=== PATIENT | female | born 1960 | race Caucasian/White ===

== ENCOUNTER 2017-06-21 16:02 | Observation (INO) ==
[2017-06-21] MEDS ORDERED: Naloxone 0.4 MG/ML INJ IVP PRN (19:10)
[2017-06-21] MEDS ORDERED: 0.9 % Sodium Chloride 1,000 ML IVC SCH (19:15)
--- NOTE | 2017-06-21 19:19 | Internal Med History&Physical ---
Date of Encounter: 06/21/17 Time of Encounter: 19:15 Assessment and Plan (1) Essential hypertension Current visit: Yes Status: Acute Restart home antihypertensive medications. (2) Hyperlipidemia Current visit: Yes Status: Acute Check lipid panel in the morning. Qualifiers: Hyperlipidemia type: unspecified Qualified Code(s): E78.5 - Hyperlipidemia , unspecified (3) Chest pain Current visit: No Status: Acute The pain has several typical and atypical features. It is located in the precordial area and worse with exertion, improves with nitroglycerin. Pain is reproducible on palpation of the anterior chest area. Currently the chest pain has resolved. Troponin is negative and EKG shows no ischemic features. We will monitor the patient on telemetry. Trend troponin. If she rules out for ACS will proceed with stress test in the morning. Check echocardiogram. Continue with nitroglycerin as needed for chest pain. Qualifiers: Chest pain type: precordial pain Qualified Code(s): R07.2 - Precordial pain Internal Medicine - H&P: HPI Chief complaint: Chest pain Admitted From: Emergency Dept Plans for Post Hospital Care: Home History of present illness: Ms. Travis is a 57 year old female with past medical history of hypertension and hyperlipidemia presented to an outside hospital for evaluation of chest pain. She reports her chest pain as located in the left side of the chest radiating to the back and left upper extremity associated with dizziness and nausea. The pain is worse with exertion. She present to all outside hospital where an EKG was nondiagnostic. Troponin was normal. The pain improved with administration of nitroglycerin. She was transferred to our hospital for further workup and care. A 10 point review of systems was positive for seasonal allergies, diarrhea and constipation alternating, skin rash Past medical history as above Past surgical history cholecystectomy spinal surgery and hysterectomy Social history: She denies tobacco alcohol and drug use. Family history: Negative for coronary artery disease in both parents. Patient' s father of lung cancer. Past Med Surg Social Fam HX - Past Medical History Medical history: arthritis, GERD, hyperlipidemia, hypertension, other Psychiatric history: depression - Past Surgical History Surgical History: cholecystectomy, hysterectomy, sinus surgery - Social History Smoking Status: Former smoker Packs per day: 2 Smokeless Tobacco Status: No Alcohol use: none Drug use: none - Family History Mother Living Status: Age at : 77 Cause of : cancer Hx Family Cardiac Disorders: No Hx Family Respiratory Disorders: No Hx Family Cancer: Yes Hx Family GI Disorders: Yes (GERD) Hx Family Genitourinary Disorders: No Hx Family Endocrine Disorder: No Hx Family Musculoskeletal Disorders: No Hx Family Neuromuscular Disorders: No Hx Family Neurologic Disorders: No Hx Family HEENT Disorders: No Hx Family Autoimmune Disorders: No Hx Family Reproductive Disorders: No Hx Family Psychosocial Disorders: No Hx Family Medical Disorders: No Father Living Status: Age at : 52 Cause of : lung cancer Hx Family Cardiac Disorders: No Hx Family Respiratory Disorders: No Hx Family Cancer: Yes Hx Family GI Disorders: No Hx Family Genitourinary Disorders: No Hx Family Endocrine Disorder: No Hx Family Musculoskeletal Disorders: No Hx Family Neuromuscular Disorders: No Hx Family Neurologic Disorders: No Hx Family HEENT Disorders: No Hx Family Autoimmune Disorders: No Hx Family Reproductive Disorders: No Hx Family Psychosocial Disorders: No Hx Family Medical Disorders: No Sister Adopted: [place]: Stephania Age: 57 Family Member Ethnicity: Non- Living Status: Still Living Hx Family Cardiac Disorders: No Hx Family Respiratory Disorders: No Hx Family Cancer: No Hx Family GI Disorders: No Hx Family Genitourinary Disorders: No Hx Family Endocrine Disorder: Yes (Diabetes) Hx Family Musculoskeletal Disorders: No Hx Family Neuromuscular Disorders: No Hx Family Neurologic Disorders: No Hx Family HEENT Disorders: No Hx Family Autoimmune Disorders: No Hx Family Reproductive Disorders: No Hx Family Psychosocial Disorders: No Hx Family Medical Disorders: No Internal Medicine - H&P: Meds Aspirin [Lo-Dose Aspirin EC] 81 mg PO 06/21/17 [History] Calcium Citrate/Vitamin D2 [Calcium with Vit D Tablet] 06/21/17 [History] Cetirizine HCl [Zyrtec] 10 mg PO 06/21/17 [History] FLUoxetine HCl [PROzac] 20 mg PO DAILY 06/21/17 [History] Multi-Day Vitamins PO 06/21/17 [History] Naproxen Sodium [Aleve] 220 mg PO 06/21/17 [History] [place]-3 Fatty Acids [Fish Oil] 300 mg PO 06/21/17 [History] Prilosec Otc 20 mg PO DAILY 06/21/17 [History] 3 Allergy/AdvReac Type Severity Reaction Status Date / Time codeine Allergy Hives Verified 06/21/17 11:25 All Systems PM: A 10-system review of systems was performed and is negative for pertinent findings except as documented above in the HPI. - Eye Eye exam: Present: PERRL, conjuntiva pink, sclera anicteric Pupils: Present: PERRL - Respiratory Respiratory exam: Present: CTAB. Absent: accessory muscle use, rales, rhonchi, wheezes - Cardiovascular Cardiovascular exam: Present: RRR, +S1, +S2. Absent: diastolic murmur, gallop, rubs, systolic murmur - GI/Abdominal GI/Abdominal exam: Present: normal bowel sounds, soft, no peritoneal signs. Absent: distended, tenderness - Extremities Exam Extremities exam: Present: warm, radial pulses palpable and symmetrical. Absent : calf tenderness, cyanotic, pedal edema - Neurological Exam Neurological exam: Present: CN II-XII intact, oriented X3, no focal deficits. Absent: pronater drift, facial droop, speech deficit - Skin Skin exam: Present: dry, intact Internal Med - H&P Results - Labs Labs: Per review of [place] emergency department medical record: Troponin 0.00. Creatinine 0.8. Potassium 3.4. EKG and [place] revealed normal sinus rhythm, narrow QRS. Nonspecific ST and T wave changes.
[2017-06-21] MEDS: Acetaminophen 325 MG TABLET PO PRN (22:12)
[2017-06-22 02:13] LABS: Basophils % 0.7 %; Eosinophils # 0.2 K/mcL (0.0-0.6); Eosinophils % 2.9 %; Hematocrit 39.9 % (35.3-44.9); Hemoglobin 13.6 g/dL (11.5-15.4); Immature Granulocytes % 0.4 % (0-4); Lymphocytes # 2.2 K/mcL (0.6-4.6); Lymphocytes % 39.5 %; Mean Corpuscular HGB Conc 34.1 g/dL (31.6-35.5); Mean Corpuscular Hemoglobin 30.5 pg (28.0-33.3); Mean Corpuscular Volume 89.5 fL (83.0-100.0); Mean Platelet Volume 9.8 fL (9.4-12.4); Monocytes # 0.6 K/mcL (0.0-1.3); Neutrophils # 2.5 K/mcL (1.6-8.9); Platelet Count 218 K/mcL (140-400); Red Blood Count 4.46 M/mcL (3.82-4.97); Red Cell Distribution Width 12.4 % (11.5-14.5); Segmented Neutrophils % 45.5 %
[2017-06-22 02:16] LABS: BUN/Creatinine Ratio 20 (6-26); Blood Urea Nitrogen 17 mg/dL (7-20); Carbon Dioxide 23 mEq/L (19-29); Chloride 109 mEq/L (98-109); Chol/HDL Ratio 5.7 (0-4.9); Cholesterol 183 mg/dL (< 200); Glucose 108 mg/dL (70-99); HDL Cholesterol 32 mg/dL (40-59); LDL Cholesterol,Calculated 119 mg/dL (0-99); Magnesium 2.1 mg/dL (1.6-2.6); Osmolality,Calculated 294 (280-300); Potassium 4.2 mEq/L (3.5-4.5); Sodium 141 mEq/L (136-145); Triglycerides 161 mg/dL (< 150); eGFR For African Americans > 60 (> 60); eGFR For Non-African Americans > 60 (> 60)
[2017-06-22] MEDS: Acetaminophen 325 MG TABLET PO PRN (04:06)
[2017-06-22] MEDS ORDERED: Regadenoson 0.4 MG/5 ML SYRINGE IVP ONE (07:42)
--- NOTE | 2017-06-22 08:53 | Internal Med Progress Note ---
Date of Encounter: 06/22/17 Time of Encounter: 11:40 - Assessment and plan (1) Chest pain Current Visit: Yes Status: Acute Assessment and plan: Pmh of HTN and hyperlipidemia presenting with typical chest pain on the left side of chest and radiating down her left arm, relieved by nitroglycerin and worst with excretion. FM . Aspirin use . No prior Echo or stress test. Patient's EKG showed normal sinus rhythm. Troponin = 0.01, 0.00. Plans: - Aspirin 81 mg - Echo today - Nuclear stress test today - NS 75ml/hr Qualifiers: Qualified Code(s): I20.0 - Unstable angina (2) Essential hypertension Current Visit: Yes Status: Acute Assessment and plan: Elevated BP this morning of 175/92. Will restarting home medication of lisinopril after testing as kidney function is wnl. (3) Hyperlipidemia Current Visit: Yes Status: Acute Assessment and plan: Patient on [place] 3 Fatty Acid Qualifiers: Qualified Code(s): E78.5 - Hyperlipidemia, unspecified - Constitutional Vitals: Temp Pulse Resp BP Pulse Ox 97.6 F 53 16 175/92 97 06/22/17 06:50 06/22/17 06:50 06/22/17 06:50 06/22/17 06:50 06/22/17 06:50 Internal Medicine: Result - Labs CBC & Chem 7: 06/22/17 01:49 06/22/17 01:49 Labs: Short CBC 06/22/17 Range/Units 01:49 WBC 5.5 (4.3-11.1) K/mcL Hgb 13.6 D (11.5-15.4) g/dL Hct 39.9 (35.3-44.9) % Plt Count 218 (140-400) K/mcL Neutrophils # 2.5 (1.6-8.9) K/mcL BMP 06/22/17 01:49 Sodium 141 Potassium 4.2 Chloride 109 Carbon Dioxide 23 BUN 17 Creatinine 0.87 Glucose 108 H Calcium 9.0 Cardiac Enzymes 06/21/17 06/22/17 Range/Units 19:57 01:49 Troponin I 0.01 0.00 (0-0.03) ng/mL Consult Discharge Plan - Plan Referrals: Vicki Allen CNP [Primary Care Provider] - 07/04/17 1:30 pm
[2017-06-22] MEDS ORDERED: Aspirin Enteric Coated 81 MG Tablet PO SCH (09:00)
[2017-06-22] MEDS ORDERED: FLUoxetine 20 MG CAPSULE PO SCH (09:00)
--- NOTE | 2017-06-22 09:52 | Nuclear Medicine Stress Report ---
Regadenoson Nuclear Stress Name: Tash Travis Date of Study: 06/22/2017 Date: 1960 Ht: 66.0 in Medical Record#: [id number] Age: 57 Wt: 168.0 lb Gender: Female Order #: [id number] Location: [facility] Room: [facility] Supervising Provider: Chip Sanchez CNP Reading Physician: Howard Mckenzie DO, FACC, FASNC Stress Technologist: Jose A Underwood CRT Renewals Manager: Damion Martins Indications: Chest Pain Impression: Pharmacologic stress ECG is negative for ischemia at level of heart rate achieved. Gated EF = 77%. Perfusion imaging was negative for ischemia or infarct. Stress Test Summary: Stress Test Type: Pharmacologic Regadenoson 0.4mg/5ml given IV Baseline Information: Initial Heart Rate: 54 Blood Pressure: 152/90 Stress Information: Test Terminated Due to (primary): As per protocol Maximum Blood Pressure: 160/80 Maximum Heart Rate: 94 Percent Maximum Heart Rate Achieved: 57 Double Product: [id number] METS Reached: 1 Symptoms: No chest symptoms Nuclear Summary: SPECT myocardial perfusion imaging using Tc99m Sestamibi given intravenously was performed at rest and following cardiac stress testing. The resting images were obtained following initial dose of 11.8 mCi. Following stress an additional dose of 35.5 mCi was given at peak exercise or 30 seconds post regadenoson infusion. Medication Given: Time Medication Dose Units Route Findings: Stress Note * Resting ECG demonstrated normal sinus rhythm. * No baseline arrhythmias were noted. * Pharmacologic stress ECG is negative for ischemia at level of heart rate achieved. * No arrhythmias were noted during stress. * Patient had no chest pain during stress. * Normal hemodynamic responses to pharmacologic stress. Study Quality * Study quality is average. Gated EF % * Gated EF = 77%. Left Ventricle * The left ventricle is not dilated. LVEDV = 65 mL. NORMALS * Normal wall motion. * Normal Segmental Perfusion in rest. * Normal segmental perfusion in stress. TID * No evidence of transient ischemic dilatation. TID ratio = 1.07. Lung Uptake * There is no evidence of increase lung uptake. Updated by Howard Mckenzie DO, FACC, FASE, FASNC on 06/22/2017 9:45:16 AM electronically signed on 06/22/2017 9:46:13 AM with status of Final
[2017-06-22 14:40] VITALS: BP 140/80
--- NOTE | 2017-06-22 16:31 | Cardiology Consult Note ---
<Jasmeet Steen - Last Filed: 06/22/17 17:34> Date of Encounter: 06/22/17 Time of Encounter: 16:24 Assessment and Plan (1) Chest pain Status: Acute Chest pain with typical and atypical features. Cardiac risk factors include HTN, HLD, and previous tobacco use. Troponin negative, d-dimer negative. EKG shows NSR with no acute ST changes. Pharmacologic stress test found to be negative for ischemia. Echocardiogram LVEF 65%. Normal LV chamber size, wall thickness and function. Mild left ventricular diastolic dysfunction. Normal right ventricular structure and function. No evidence of pulmonary hypertension. No significant valvular dysfunction. Telemetry review shows SR, avg HR 64. HR in the 50's during daytime hours and 40 's during nocturnal hours. Recommend aggressive risk factor modification. Better blood pressure control. Continue asa, add statin. Increase lisinopril. No beta-dari d/t HR in the 50' s at times. Qualifiers: Ischemic chest pain type: unstable angina pectoris Qualified Code(s): I20.0 - Unstable angina (2) Essential hypertension Status: Chronic Increase lisinopril. Low sodium diet. (3) Hyperlipidemia Status: Chronic Qualifiers: Hyperlipidemia type: unspecified Qualified Code(s): E78.5 - Hyperlipidemia , unspecified Discussion w patient/family: The assessment and plan as outlined above was discussed with the patient and/or family members who expressed understanding and agreement. All questions were answered. Thank you for involving us in the care of your patient. Please call with any questions. History of Present Illness Consult date: 06/22/17 Requesting physician: Iraj Ashby Consult reason: Chest pain Chief complaint: Chest pain History of present illness: Ms. Travis is a 57 year old female with a history of HTN, HLD, and previous tobacco abuse who presented with chest pain. She was directed to go to the ER when she was found to have elevated blood pressure and HR in the 50's at her PCP office. She c/o left chest aching radiating to her back and numbness and tingling running down her arm starting two weeks ago. She associates it with excessive sweating, SOB, and palpitations. She also c/o dizziness with position change. Symptoms increase with activity and improve with rest. During her hospital stay her cardiac work-up was normal including stress test and echocardiogram. Troponin was negative. EKG showed NSR. She was noted to have elevated b/p up to 175/92. Past Med Surg Social Fam HX - Past Medical History Medical history: arthritis, GERD, hyperlipidemia, hypertension, other Psychiatric history: depression - Past Surgical History Surgical History: cholecystectomy, hysterectomy, sinus surgery - Social History Smoking Status: Former smoker Packs per day: 2 Smokeless Tobacco Status: No Alcohol use: none Drug use: none - Family History Mother Living Status: Age at : 77 Cause of : cancer Hx Family Cardiac Disorders: No Hx Family Respiratory Disorders: No Hx Family Cancer: Yes Hx Family GI Disorders: Yes (GERD) Hx Family Genitourinary Disorders: No Hx Family Endocrine Disorder: No Hx Family Musculoskeletal Disorders: No Hx Family Neuromuscular Disorders: No Hx Family Neurologic Disorders: No Hx Family HEENT Disorders: No Hx Family Autoimmune Disorders: No Hx Family Reproductive Disorders: No Hx Family Psychosocial Disorders: No Hx Family Medical Disorders: No Father Living Status: Age at : 52 Cause of : lung cancer Hx Family Cardiac Disorders: No Hx Family Respiratory Disorders: No Hx Family Cancer: Yes Hx Family GI Disorders: No Hx Family Genitourinary Disorders: No Hx Family Endocrine Disorder: No Hx Family Musculoskeletal Disorders: No Hx Family Neuromuscular Disorders: No Hx Family Neurologic Disorders: No Hx Family HEENT Disorders: No Hx Family Autoimmune Disorders: No Hx Family Reproductive Disorders: No Hx Family Psychosocial Disorders: No Hx Family Medical Disorders: No Sister Adopted: [place]: Stephania Age: 57 Family Member Ethnicity: Non- Living Status: Still Living Hx Family Cardiac Disorders: No Hx Family Respiratory Disorders: No Hx Family Cancer: No Hx Family GI Disorders: No Hx Family Genitourinary Disorders: No Hx Family Endocrine Disorder: Yes (Diabetes) Hx Family Musculoskeletal Disorders: No Hx Family Neuromuscular Disorders: No Hx Family Neurologic Disorders: No Hx Family HEENT Disorders: No Hx Family Autoimmune Disorders: No Hx Family Reproductive Disorders: No Hx Family Psychosocial Disorders: No Hx Family Medical Disorders: No Medications and Allergies Aspirin [Lo-Dose Aspirin EC] 81 mg PO DAILY 06/21/17 [History] Calcium Carbonate/Vitamin D3 [Calcium 500 + Vit D 200 Caplet] 1 each PO DAILY [History] Cetirizine HCl [Zyrtec] 10 mg PO DAILY 06/21/17 [History] FLUoxetine HCl [PROzac] 20 mg PO DAILY 06/21/17 [History] Lisinopril [Zestril] 10 mg PO DAILY 06/21/17 [History] Multivitamin [Multi-Day Vitamins] 1 each PO DAILY 06/21/17 [History] Naproxen Sodium [Aleve] 220 mg PO Q12H 06/21/17 [History] [place]-3 Fatty Acids [Fish Oil] 300 mg PO DAILY 06/21/17 [History] Omeprazole Magnesium [Prilosec Otc] 20 mg PO DAILY 06/21/17 [History] 3 Allergy/AdvReac Type Severity Reaction Status Date / Time codeine Allergy Hives Verified 06/21/17 11:25 All Systems Review: A 10-system review of systems was performed and is negative for pertinent findings except as documented above in the HPI. Physical Examination Vital Signs, Last 4 Hours Temp Pulse Resp BP Pulse Ox 06/22/17 14:38 98.0 F 67 16 140/80 99 General: Conversant, No Apparent Distress HEENT: Atraumatic, Normocephaly, Mucus Membranes Moist Neck: No JVD, Normal carotid pulses Cardiac: Reg Rate and Rhythm, Normal S1 and S2, No Murmur Lungs: Normal Breath Sounds, No Wheeze, Rales, Rhonchi Neuro: Alert and responsive, No focal deficits noted Abdomen: Soft, Non-Tender Skin: No rashes noted on visualized skin Musculoskeletal: Other (Left chest wall tender to palpation.) Extremities: No Clubbing, No Cyanosis, No Edema, Normal Pulses Results 06/22/17 01:49 06/22/17 01:49 Lab Results 06/21/17 06/22/17 06/22/17 19:57 01:49 01:49 WBC 5.5 Hgb 13.6 D Hct 39.9 Plt Count 218 Sodium Potassium Chloride Carbon Dioxide BUN Creatinine Glucose Calcium Magnesium Troponin I 0.01 0.00 B-Natriuretic Peptide 06/22/17 06/22/17 01:49 01:49 WBC Hgb Hct Plt Count Sodium 141 Potassium 4.2 Chloride 109 Carbon Dioxide 23 BUN 17 Creatinine 0.87 Glucose 108 H Calcium 9.0 Magnesium 2.1 Troponin I B-Natriuretic Peptide < 10 Echocardiogram 06/22/17 19:14 Impressions: LVEF 65%. Normal LV chamber size, wall thickness and function. Mild left ventricular diastolic dysfunction. Normal right ventricular structure and function. No evidence of pulmonary hypertension. No significant valvular dysfunction. Left Ventricular Wall Motion: Rest Echo Findings All wall segments showed normal motion. - Imaging and Cardiology Stress Test: report reviewed Echo: report reviewed - EKG Interpretation EKG results cardiology: personally reviewed Consult Discharge Plan - Plan Instructions: Chest Pain (DC) Additional Instructions: Follow-up with your primary care physician and cardiology in 1 to 2 weeks. Recheck in the ED if symptoms worsen or new symptoms arise. Talk to primary care physician about getting an gastroenterology follow-up if no other cause of chest pain. Referrals: [facility] [Provider Group] Vicki Allen CNP [Primary Care Provider] - 07/04/17 1:30 pm <Cailin Pham - Last Filed: 06/23/17 14:19> Date of Encounter: 06/23/17 Assessment and Plan Discussion w patient/family: The assessment and plan as outlined above was discussed with the patient and/or family members who expressed understanding and agreement. All questions were answered. Thank you for involving us in the care of your patient. Please call with any questions. History of Present Illness History of present illness: Ms. Travis is a 57 year old female All Systems Review: A 10-system review of systems was performed and is negative for pertinent findings except as documented above in the HPI. Results 06/22/17 01:49 06/22/17 01:49 - Attending Attestation Patient was discharged prior to my evaluation.
--- NOTE | 2017-06-22 17:05 | Discharge Summary ---
<Padmini Reyes - Last Filed: 06/22/17 17:00> Date of Encounter: 06/22/17 Time of Encounter: 11:45 - Discharge Diagnosis (1) Chest pain Priority: Primary Status: Acute Qualifiers: Ischemic chest pain type: unstable angina pectoris Qualified Code(s): I20.0 - Unstable angina (2) Essential hypertension Priority: Secondary Status: Chronic (3) Hyperlipidemia Priority: Secondary Status: Chronic Qualifiers: Hyperlipidemia type: unspecified Qualified Code(s): E78.5 - Hyperlipidemia , unspecified - Discharge Medications Home Medications: Aspirin [Lo-Dose Aspirin EC] 81 mg PO DAILY 06/21/17 [History] Calcium Carbonate/Vitamin D3 [Calcium 500 + Vit D 200 Caplet] 1 each PO DAILY [History] Cetirizine HCl [Zyrtec] 10 mg PO DAILY 06/21/17 [History] FLUoxetine HCl [PROzac] 20 mg PO DAILY 06/21/17 [History] Lisinopril [Zestril] 10 mg PO DAILY 06/21/17 [History] Multivitamin [Multi-Day Vitamins] 1 each PO DAILY 06/21/17 [History] Naproxen Sodium [Aleve] 220 mg PO Q12H 06/21/17 [History] [place]-3 Fatty Acids [Fish Oil] 300 mg PO DAILY 06/21/17 [History] Omeprazole Magnesium [Prilosec Otc] 20 mg PO DAILY 06/21/17 [History] Allergies/Adverse Reactions: 3 Allergy/AdvReac Type Severity Reaction Status Date / Time codeine Allergy Hives Verified 06/21/17 11:25 Procedures/tests Complete & Pending: Procedures Performed prior 72 hours Category Date Time Status NM imani perf SPECT multi [NM] Routine Exams 06/21/17 19:14 Taken EV echocardiogram Stat Y 06/22/17 19:14 Completed SP pharm nuclear stress Stat Y 06/22/17 07:15 Completed Date of admission: 06/21/17 17:23 Primary care physician: Vicki Allen CNP Consults: 06/22/17 13:31 Consult to Cardiology [CONS] Routine Comment: Consulting Provider: [facility] Reason for Consult: Chest pain Time Notified: 13:32 Call Completed: Yes - Patient Status Disposition: Home, Self-Care Condition: Good Functional capacity at discharge: independent ambulation Overall status at discharge: patient is progressing back to baseline - Discharge Instructions Instructions: Chest Pain (DC) Follow Up With: Vicki Allen CNP [Primary Care Provider] - 07/04/17 1:30 pm [facility] [Provider Group] Forms: Inpatient Work/School Release Additional Instructions: Follow-up with your primary care physician and cardiology in 1 to 2 weeks. Recheck in the ED if symptoms worsen or new symptoms arise. Talk to primary care physician about getting an gastroenterology follow-up if no other cause of chest pain. - Diet and Activity Activity: increase activity as tolerated Diet: advance to your usual diet Hospital course: Ms. Travis is a 57 year old female with previous past medical history hypertension and hyperlipidemia presented to an outside facility for evaluation of typical chest pain and was brought in for an evaluation for unstable angina. EKG showed normal sinus rhythm. She did have an elevated blood pressure 175/ 92 Patient's troponins were 0.01 and 0.0. Pharmacologic stress test found to be negative for ischemia. Echocardiogram LVEF 65%. Normal LV chamber size, wall thickness and function. Mild left ventricular diastolic dysfunction. Normal right ventricular structure and function. No evidence of pulmonary hypertension. No significant valvular dysfunction. Cardiology was consulted due to the typical presentation and concern for possible nuclear stress testing false negative. Cardiology recommended follow up outpatient. Patient was instructed to follow up with cardiology and her primary care physician in one to 2 weeks. And if negative cardiac further workup patient should be seen by GI for a EGD. - Time Spent with Patient Total time spent providing and/or coordinating discharge services: - Constitutional Vitals: Temp Pulse Resp BP Pulse Ox 98.0 F 67 16 140/80 99 06/22/17 14:38 06/22/17 14:38 06/22/17 14:38 06/22/17 14:38 06/22/17 14:38 Exam: Constitutional: Alert, in no acute distress, well nourished, well developed. Head: Normocephalic, atraumatic, normal contour and symmetric, no masses, lesions or scars Heart: Normal, regular rate and rhythm, no murmurs Lungs: Clear to auscultation, no wheezes, rales, or rhonchi Abdomen: Soft, nondistended, nontender, and no masses palpable, bowel sounds present and normal, no guarding or rigidity. Extremities: No clubbing, cyanosis, or edema, radial pulse +2/4, capillary refill <2sec. Skin: Skin warm and dry, no lesions, no rashes, no jaundice Neurologic: Cranial nerves II through XII grossly intact, no focal deficits, strength within normal limits in all extremities Psych: Cooperative with exam, good eye contact, cognitive function intact, judgment good insight good, speech clear, thought process logical, and goal directed <Iraj Ashby - Last Filed: 06/22/17 18:11> Date of Encounter: 06/22/17 - Discharge Diagnosis (1) Essential hypertension Status: Chronic (2) Hyperlipidemia Status: Chronic Qualifiers: Hyperlipidemia type: unspecified Qualified Code(s): E78.5 - Hyperlipidemia , unspecified (3) Chest pain Status: Inactive Qualifiers: Chest pain type: precordial pain Qualified Code(s): R07.2 - Precordial pain Procedures/tests Complete & Pending: Procedures Performed prior 72 hours Category Date Time Status NM imani perf SPECT multi [NM] Routine Exams 06/21/17 19:14 Taken EV echocardiogram Stat Y 06/22/17 19:14 Completed SP pharm nuclear stress Stat Y 06/22/17 07:15 Completed Date of admission: 06/21/17 17:23 Primary care physician: Vicki Allen CNP Consults: 06/22/17 13:31 Consult to Cardiology [CONS] Routine Comment: Consulting Provider: [facility] Reason for Consult: Chest pain Time Notified: 13:32 Call Completed: Yes Hospital course: Ms. Travis is a 57 year old female - Time Spent with Patient Total time spent providing and/or coordinating discharge services: - Constitutional Vitals: Temp Pulse Resp BP Pulse Ox 98.0 F 67 16 140/80 99 06/22/17 14:38 06/22/17 14:38 06/22/17 14:38 06/22/17 14:38 06/22/17 14:38 - Attending Attestation I examined this patient and my medical decision-making was reviewed with the Resident Physician. I agree with the documented findings, disposition and treatment plan as described except to the extent set forth below. Patient presented to the hospital with typical and atypical chest pain features. Her echocardiogram revealed normal EF, stress test was negative for ischemia. She was evaluated by cardiology who recommended aggressive risk factor modification and medical management. She was cleared for discharge. On exam she is in no acute distress, heart exam reveals regular S1 and S2 with no murmurs rubs or gallops. Lungs are clear. Extremity exam reveals no edema clubbing or cyanosis.
[2017-06-23] MEDS ORDERED: Lisinopril 20 MG TABLET PO SCH (09:00)
== END 2017-06-22 17:34 | disposition home or self-care (01) ==
LOC: 3ANU → SUATTDRO 17:23
PROVIDERS: ADMIT Internal Medicine; ATTEND Internal Medicine